=== PATIENT | female | born 1970 | race American Indian/Alaskan Native ===

== ENCOUNTER 2016-11-16 20:31 | Emergency (ER) | payer SELFPAY ==
[2016-11-16 21:43] LABS: Bilirubin,Urine NEG (Negative); Blood,Urine MOD (Negative); Ketones,Urine NEG (Negative); Leukocyte Esterase,Urine NEG (Negative); Nitrite,Urine NEG (Negative); Urobilinogen,Urine < 2.0 mg/dL (<2.0)
[2016-11-16 21:45] LABS: Protein,Urine >500 mg/dL (Negative)
[2016-11-17] MEDS ORDERED: MORPHINE IM ONE (04:27)
[2016-11-17] MEDS ORDERED: ZOFRAN IM ONE (04:27)
--- NOTE | 2016-11-17 04:32 | Emergency Department Report ---
ED Headache HPI - General Chief Complaint: Headache Stated Complaint: HIGH B/P, BACK AND LEG PAIN Time Seen by Provider: 11/17/16 04:20 Source: patient, family Exam Limitations: no limitations - History of Present Illness Timing/Duration: 1 week Quality: moderate Head Injury Location: frontal Recent Head Trauma: no recent headache/trauma, chronic headaches Associated Symptoms: denies: confusion, fatigue, facial pain, fever/chills, flushing, loss of consciousness, nausea/vomiting, stiff neck, vision changes, weakness Allergies/Adverse Reactions: Allergies No Known Allergies Allergy (Verified 11/17/16 05:00) Home Medications: Ambulatory Orders ALPRAZolam [ALPRAZolam Odt] 0.5 mg PO QID PRN 11/17/16 Aspirin [Adult Low Dose Aspirin EC] 81 mg PO DAILY 11/17/16 Atenolol [Tenormin] 10 mg PO DAILY 11/17/16 Atenolol [Tenormin] 25 mg PO DAILY #30 tab 11/17/16 Ergocalciferol [Vitamin D2] 1 cap PO QWEEK 11/17/16 Ferrous Sulfate [Feosol] 325 mg PO QDAY 11/17/16 HYDROcodone/APAP 5-325 [[place] 5/325] 1 each PO Q4HR PRN 11/17/16 Lisinopril [Zestril] 40 mg PO DAILY 11/17/16 Prazosin [Minipress] 1 mg PO HS 11/17/16 Quetiapine Fumarate [Seroquel] 100 mg PO HS 11/17/16 Sertraline [Zoloft] 200 mg PO QDAY 11/17/16 Sodium Chloride/Sodium Bicarb [[place]] 2 sprays PRN PRN oxyCODONE /ACETAMINOPHEN [Percocet 5/325] 1 tab PO Q6HR PRN #10 tablet 11/17/16 ED Review of Systems ROS: Stated complaint: HIGH B/P, BACK AND LEG PAIN Other details as noted in HPI Comment: All other systems reviewed and negative Constitutional: denies: chills, fever ENT: denies: ear pain, hearing loss Respiratory: denies: cough Cardiovascular: denies: chest pain, palpitations Endocrine: denies: excessive sweating Gastrointestinal: denies: nausea, vomiting Neurological: headache. denies: weakness, numbness, paresthesias ED Past Medical Hx - Past Medical History Previous Medical History?: Yes Hx Hypertension: Yes Hx Congestive Heart Failure: Yes Hx Psychiatric Treatment: (anxiety, PTSD) Additional medical history: mixed connective tissue dz, meningitis, chronic leg and back pain - Surgical History Additional Surgical History: Brain surgery - Social History Smoking Status: Current Every Day Smoker Substance Use Type: None - Medications Home Medications: Home Medications Medication Instructions Recorded Confirmed Last Taken Type ALPRAZolam [ALPRAZolam Odt] 0.5 mg PO QID PRN 11/17/16 11/17/16 11/16/16 18:00 History Aspirin [Adult Low Dose Aspirin EC] 81 mg PO DAILY 11/17/16 11/17/16 11/16/16 08 :00 History Atenolol [Tenormin] 10 mg PO DAILY 11/17/16 11/17/16 11/09/16 08:00 History Atenolol [Tenormin] 25 mg PO DAILY #30 tab 11/17/16 Unknown Rx Ergocalciferol [Vitamin D2] 1 cap PO QWEEK 11/17/16 11/17/16 11/09/16 08:00 History Ferrous Sulfate [Feosol] 325 mg PO QDAY 11/17/16 11/17/16 11/16/16 08:00 History HYDROcodone/APAP 5-325 [[place] 1 each PO Q4HR PRN 11/17/16 11/17/16 11/16/16 21: 00 History 5/325] Lisinopril [Zestril] 40 mg PO DAILY 11/17/16 11/17/16 11/16/16 08:00 History Prazosin [Minipress] 1 mg PO HS 11/17/16 11/17/16 11/16/16 21:00 History Quetiapine Fumarate [Seroquel] 100 mg PO HS 11/17/16 11/17/16 11/15/16 00:00 History Sertraline [Zoloft] 200 mg PO QDAY 11/17/16 11/17/16 11/16/16 08:00 History Sodium Chloride/Sodium Bicarb 2 sprays PRN PRN 11/17/16 11/17/16 11/16/16 08:00 History [[place]] oxyCODONE /ACETAMINOPHEN [Percocet 1 tab PO Q6HR PRN #10 tablet 11/17/16 Unknown Rx 5/325] ED Physical Exam - General Limitations: No Limitations General appearance: alert - Head Head exam: Present: atraumatic - Eye Eye exam: Present: normal appearance - ENT ENT exam: Present: normal exam - Neck Neck exam: Present: normal inspection, full ROM. Absent: tenderness, meningismus, lymphadenopathy, thyromegaly - Respiratory Respiratory exam: Present: normal lung sounds bilaterally. Absent: wheezes, rales, stridor - Cardiovascular Cardiovascular Exam: Present: regular rate, normal rhythm, normal heart sounds - GI/Abdominal GI/Abdominal exam: Present: soft. Absent: tenderness, guarding, rebound, rigid , mass - Back Exam Back exam: Present: normal inspection - Neurological Exam Neurological exam: Present: alert, oriented X3, CN II-XII intact - Skin Skin exam: Present: warm, normal color ED Course Vital Signs 11/16/16 11/17/16 11/17/16 20:38 02:29 02:30 Temperature 98 F Pulse Rate 111 H 76 82 Respiratory 18 21 21 Rate Blood Pressure 147/103 160/109 Blood Pressure [Left] O2 Sat by Pulse 100 Oximetry 11/17/16 11/17/16 11/17/16 02:40 02:50 03:00 Temperature Pulse Rate 78 76 79 Respiratory 30 H 26 H 19 Rate Blood Pressure 160/109 158/99 151/105 Blood Pressure [Left] O2 Sat by Pulse 100 100 100 Oximetry 11/17/16 11/17/16 11/17/16 03:10 03:20 03:36 Temperature Pulse Rate 78 76 Respiratory 26 H 20 18 Rate Blood Pressure 151/105 156/99 156/99 Blood Pressure [Left] O2 Sat by Pulse 100 99 Oximetry 11/17/16 11/17/16 11/17/16 03:40 03:50 04:00 Temperature Pulse Rate 75 74 Respiratory 13 24 20 Rate Blood Pressure 156/99 150/101 150/98 Blood Pressure [Left] O2 Sat by Pulse 100 100 98 Oximetry 11/17/16 11/17/16 11/17/16 04:10 04:20 04:52 Temperature Pulse Rate 73 72 76 Respiratory 22 21 20 Rate Blood Pressure 156/99 161/101 Blood Pressure 159/101 [Left] O2 Sat by Pulse 99 100 99 Oximetry - Reevaluation(s) Reevaluation #1: 11/17/16 05:54 Patient stated that she is feeling much better however headache is gone. She stated that she is out of her atenolol 25 mg daily. He will be discharged home to follow-up with her primary doctor. ED Medical Decision Making - Lab Data Result diagrams: 11/17/16 04:46 11/17/16 04:46 Critical care attestation.: If time is entered above; I have spent that time in minutes in the direct care of this critically ill patient, excluding procedure time. ED Disposition Clinical Impression: Headache, Hypertension Disposition: DC-01 TO HOME OR SELFCARE Is pt being admited?: No Does the pt Need Aspirin: No Condition: Stable Instructions: Hypertension (ED) Referrals: PRIMARY CARE, [Primary Care Provider] - 3-5 Days
[2016-11-17] MEDS ORDERED: PERCOCET 5/325 PO ONE (04:47)
[2016-11-17] MEDS ORDERED: XANAX PO ONE (04:54)
--- NOTE | 2016-11-17 05:18 | Cat Scan Report ---
FINAL REPORT PROCEDURE: CT HEAD/BRAIN WO CON TECHNIQUE: Computerized tomography of the head was performed without contrast material. HISTORY: headache COMPARISON: No prior studies are available for comparison. FINDINGS: Skull and scalp: Normal. Paranasal sinuses: Normal. Ventricles and subarachnoid spaces: Normal. Cerebrum: No evidence of hemorrhage, acute infarction or mass . Cerebellum and brainstem: No evidence of hemorrhage, acute infarction or mass. Vasculature: Normal. Comments: None. IMPRESSION: There is no evidence of an acute intracranial process
[2016-11-17 05:33] LABS: Blood Urea Nitrogen 9 mg/dL (7-17); Calcium 8.3 mg/dL (8.4-10.2); Carbon Dioxide 22 mmol/L (22-30); Glucose 74 mg/dL (65-100)
[2016-11-17 05:34] LABS: Alanine Aminotransferase 19 units/L (7-56); Albumin 3.1 g/dL (3.9-5); Albumin/Globulin Ratio 0.6 %; Alkaline Phosphatase 78 units/L (35-129); Anion Gap 18 mmol/L; Chloride 99.9 mmol/L (98-107); Potassium 4.1 mmol/L (3.6-5.0); Sodium 136 mmol/L (137-145)
[2016-11-17 05:36] LABS: Basophils % (Auto) 0.7 % (0.0-1.8); Eosinophils % (Auto) 5.7 % (0.0-4.3); Hematocrit 33.1 % (30.3-42.9); Hemoglobin 11.1 gm/dl (10.1-14.3); Mean Corpuscular HGB Conc 33 % (30-34); Mean Corpuscular Hemoglobin 29 pg (28-32); Mean Corpuscular Volume 87 fl (79-97); Platelet Count 241 K/mm3 (140-440); Red Blood Count 3.83 M/mm3 (3.65-5.03); Red Cell Distribution Width 13.2 % (13.2-15.2); White Blood Count 4.4 K/mm3 (4.5-11.0)
[2016-11-17] MEDS ORDERED: CATAPRES PO ONE (05:58)
[2016-11-17 06:42] VITALS: BP 133/70
== END 2016-11-17 06:51 | disposition home or self-care (01) ==
LOC: ED 20:31
DX: R51 Headache (principal); I10 Essential (primary) hypertension; I50.9 Heart failure, unspecified; F43.10 Post-traumatic stress disorder, unspecified; F41.9 Anxiety disorder, unspecified; F17.200 Nicotine dependence, unspecified, uncomplicated; Z79.82 Long term (current) use of aspirin
CPT/HCPCS: 36415; 70450; 80053; 81001; 81025; 85025; 93005; 93010; 99284; J2270; J2405